=== PATIENT | female | born 1935 | race Caucasian/White ===

== ENCOUNTER 2018-10-13 06:55 | Inpatient (IN) | payer MEDICARE, BC, MEDICAID ==
[~2018-10-13] VITALS: Ht 162.6 cm; Wt 51.7 kg
[2018-10-13] MEDS ORDERED: ATEN25TA PO (07:06)
[2018-10-13] MEDS ORDERED: LEVO25TA9 PO (07:06)
[2018-10-13] MEDS ORDERED: ONDANSETRON 4 MG/2 ML VIAL ONE ×2 (07:09→09:37)
[2018-10-13] MEDS ORDERED: HYDROMORPHONE 1 MG/1 ML DISP.SYRIN ONE ×2 (07:09→09:37)
[2018-10-13] MEDS ORDERED: ONDANSETRON 4 MG/2 ML VIAL IM ONE (07:15)
[2018-10-13] MEDS ORDERED: HYDROMORPHONE 1 MG/1 ML DISP.SYRIN IM ONE (07:15)
--- NOTE | 2018-10-13 08:52 | NUR ---
pt still has pain 02/23. but refusing pain med at this time. aware.
[2018-10-13] MEDS ORDERED: IV NORMAL SALINE 1000 ML BAG IV ONE (09:30)
[2018-10-13] MEDS ORDERED: ONDANSETRON IV *ER 4 MG/2 ML VIAL IV ONE (09:30)
[2018-10-13] MEDS ORDERED: HYDROMORPHONE 1 MG/1 ML DISP.SYRIN IV ONE (09:30)
[2018-10-13 09:50] LABS: BASOPHILS % (AUTO) 0.7 % (0.0-2.0); EOSINOPHILS # (AUTO) 0.1 K/uL (0.0-0.7); EOSINOPHILS % (AUTO) 1.7 % (0.0-7.0); HEMATOCRIT 38.1 % (31.2-41.9); HEMOGLOBIN 12.7 g/dL (10.9-14.3); LYMPHOCYTES # (AUTO) 1.4 K/uL (20.0-40.0); LYMPHOCYTES % (AUTO) 24.3 % (20.5-51.5); MEAN CORPUSCULAR HEMOGLOBIN 31.1 uug (24.7-32.8); MEAN CORPUSCULAR HGB CONC 33 g/dL (32.3-35.6); MEAN CORPUSCULAR VOLUME 93.2 fL (75.5-95.3); MONOCYTES # (AUTO) 0.5 K/uL (2.0-10.0); MONOCYTES % (AUTO) 8.3 % (0.0-11.0); NEUTROPHILS # (AUTO) 3.7 K/uL (1.8-8.9); PLATELET COUNT (AUTO) 141 K/uL (179-408); RED BLOOD CELL COUNT(AUTO) 4.09 MIL/uL (3.63-4.92); WHITE BLOOD COUNT (AUTO) 5.6 K/uL (3.8-11.8)
[2018-10-13 09:51] LABS: *BILIRUBIN,URIN NEGATIVE (NEGATIVE); *BLOOD, URINE Trace-lysed (NEGATIVE); *CLARITY,URINE CLEAR (CLEAR); *COLOR,URINE YELLOW (YELLOW); *KETONES,URINE NEGATIVE (NEGATIVE); *UROBILINOGEN,URINE 0.2 E.U./dl (NORMAL); LEUKOCYTE ESTERASE ,URINE NEGATIVE (NEGATIVE); NITRITE, URINE NEGATIVE (NEGATIVE); PH,URINE 6.5 (5.0-8.0); UGLUCOSE NEGATIVE (NEGATIVE)
[2018-10-13 09:57] LABS: CARBON DIOXIDE 32 mmol/L (21-32); CHLORIDE 101 mmol/L (98-107); GLUCOSE 120 mg/dL (74-106); POTASSIUM 4.8 mmol/L (3.5-5.1); UREA NITROGEN, BLOOD 26 mg/dL (7-18)
[2018-10-13 09:57] LABS: BACTERIA,URINE NONE SEEN /HPF (NONE SEEN); SQUAMOUS EPITHELIAL CELL,UR FEW /HPF (NONE SEEN); WBC,URINE 0-3 /HPF (0-3)
[2018-10-13 10:04] LABS: ALANINE AMINOTRANSFERASE 18 U/L (14-59); ALKALINE PHOSPHATASE 93 U/L (50-136); ASPARTATE AMINOTRANSFERASE 19 U/L (15-37); BILIRUBIN,DIRECT 0.2 mg/dL (0.0-0.2); BILIRUBIN,TOTAL 0.6 mg/dL (0.2-1.0); LIPASE 119 U/L (73-393)
--- NOTE | 2018-10-13 10:13 | NUR ---
pt more comfortable now, neck pain down to 3/10 when moving, pt denies any nausea.
[2018-10-13 10:30] VITALS: BP 173/84
[2018-10-13] MEDS ORDERED: Z GUARD REMEDY PASTE 57 GM TUBE TOP PRN (10:45)
[2018-10-13] MEDS ORDERED: ONDANSETRON 4 MG/2 ML VIAL IV PRN (10:45)
[2018-10-13] MEDS ORDERED: ZOLPIDEM 5 MG TABLET PO PRN (10:45)
[2018-10-13 12:00] VITALS: BP 169/79
[2018-10-13] MEDS ORDERED: ATENOLOL 50 MG TABLET PO ONE (12:15)
[2018-10-13] MEDS: CELECOXIB 200 MG CAPSULE PO SCH ×2 (12:34→23:03)
[2018-10-13] MEDS: IV NS 1000 ML 1,000 ML IV PRN (13:31)
[2018-10-13 16:00] VITALS: BP 135/64
--- NOTE | 2018-10-13 18:00 | NUR ---
Pt is comfortable in bed without neck brace per patients preference. Discuss pt the need for neck brace to stabilize neck pt is in no acute distress. Pt denies any c/o pain. Call light is within reach.
[2018-10-13 20:09] VITALS: BP 119/68
[2018-10-13] MEDS: OXYCODONE HCL 5 MG TABLET PO PRN (21:07)
[2018-10-13] MEDS: ACETAMINOPHEN 325 MG TABLET PO PRN (22:34)
--- NOTE | 2018-10-13 22:55 | NUR ---
PATIENT BLOOD PRESSURE 171/78 AND HR 46. ALL OTHER VSS. CALLED OUT TO DR. SALCIDO FOR FURTHER ORDERS.
[2018-10-13] MEDS: hydrALAZINE HCL 25 MG TABLET PO PRN (23:04)
--- NOTE | 2018-10-13 23:05 | NUR ---
PATIENT GIVEN HYDRALAZINE 25MG PO PRN FOR BP 171/78. MD AWARE OF HEART RATE OF 46. WILL CONTINUE TO MONITOR AND ASSESS.
--- NOTE | 2018-10-13 23:45 | NUR ---
PATIENT ASLEEP IN BED. RECHECKED PATIENTS BP, 146/69 AND HEART RATE 48. WILL CONTINUE TO MONITOR AND ASSESS.
[2018-10-14] MEDS: IV NS 1000 ML 1,000 ML IV PRN ×2 (03:39→15:56)
[2018-10-14 05:07] VITALS: BP 132/69
--- NOTE | 2018-10-14 05:56 | NUR ---
PATIENT ASLEEP IN BED. NO S/S OF PAIN OR DISCOMFORT. SLEPT WELL. VS WNL. IVF INFUSING WELL. BED ALARM ON. CALL LIGHT IN REACH. ALL NEEDS ATTENDED, WILL CONTINUE TO MONITOR AND ASSESS.
[2018-10-14] MEDS: LEVOTHYROXINE SODIUM 25 MCG TABLET PO SCH (06:10)
[2018-10-14] MEDS: OXYCODONE HCL 5 MG TABLET PO PRN ×2 (06:14→15:52)
--- NOTE | 2018-10-14 06:15 | NUR ---
PATIENT AWAKE IN BED. C/O PAIN IN NECK. PATIENT GIVEN OXYCODONE 10MG PO PRN FOR PAIN. WILL CONTINUE TO MONITOR.
[2018-10-14 06:46] LABS: BASOPHILS % (AUTO) 0.9 % (0.0-2.0); EOSINOPHILS # (AUTO) 0.1 K/uL (0.0-0.7); EOSINOPHILS % (AUTO) 3.8 % (0.0-7.0); HEMATOCRIT 37.8 % (31.2-41.9); HEMOGLOBIN 12.5 g/dL (10.9-14.3); LYMPHOCYTES # (AUTO) 1.8 K/uL (20.0-40.0); MEAN CORPUSCULAR HGB CONC 33 g/dL (32.3-35.6); MEAN CORPUSCULAR VOLUME 93.5 fL (75.5-95.3); MONOCYTES # (AUTO) 0.3 K/uL (2.0-10.0); MONOCYTES % (AUTO) 8.9 % (0.0-11.0); NEUTROPHILS # (AUTO) 1.5 K/uL (1.8-8.9); NEUTROPHILS % (AUTO) 40.4 % (38.5-71.5); PLATELET COUNT (AUTO) 126 K/uL (179-408); RED BLOOD CELL COUNT(AUTO) 4.04 MIL/uL (3.63-4.92); WHITE BLOOD COUNT (AUTO) 3.8 K/uL (3.8-11.8)
[2018-10-14 06:51] LABS: ALANINE AMINOTRANSFERASE 14 U/L (14-59); ALKALINE PHOSPHATASE 74 U/L (50-136); ASPARTATE AMINOTRANSFERASE 20 U/L (15-37); CARBON DIOXIDE 30 mmol/L (21-32); CHLORIDE 108 mmol/L (98-107); CHOLESTEROL 128 mg/dL (<200); CREATININE 0.8 mg/dL (0.6-1.3); GLUCOSE 97 mg/dL (74-106); HDL CHOLESTEROL 64 mg/dL (40-60); MAGNESIUM 1.8 mg/dL (1.8-2.4); PHOSPHOROUS 3.2 mg/dL (2.5-4.9); POTASSIUM 4.4 mmol/L (3.5-5.1); TRIGLYCERIDES 20 MG/DL (30-150); UREA NITROGEN, BLOOD 19 mg/dL (7-18)
[2018-10-14 06:55] LABS: THYROID STIMULATING HORMONE 0.641 mIU/mL (0.358-3.740)
[2018-10-14 08:00] VITALS: BP 161/73
--- NOTE | 2018-10-14 08:00 | NUR ---
AWAKE ALERT COOPERATE WELL NO PAIN OR SOB AT THIS TIME RESTING WELL WITH CALL JASSO IN REACH
[2018-10-14] MEDS: CELECOXIB 200 MG CAPSULE PO SCH ×2 (08:39→20:46)
[2018-10-14] MEDS: ATENOLOL 25 MG TABLET PO SCH (08:40)
--- NOTE | 2018-10-14 10:00 | NUR ---
OOB UP AMBULATE WITH PT DOING WELL FAMILY AT BEDSIDE
[2018-10-14 11:36] VITALS: BP 160/71
[2018-10-14 13:00] VITALS: BP 138/56
[2018-10-14 15:35] VITALS: BP 132/66
--- NOTE | 2018-10-14 16:00 | NUR ---
C/O OF H/A MEDICATION OXY IR PO GIVEN ORDER AND COOL COMPRESS TO FOREHAED FOR COMFORT KEEP ROOM DARK AND QUIET
--- NOTE | 2018-10-14 17:00 | NUR ---
PATIENT STATE PAIN STILL THERE MEDICATION DOES NOT HELP AT THIS TIME ASIM MARSH WAS INFORM AND MESSAGE LEFT
--- NOTE | 2018-10-14 17:30 | NUR ---
STABLE CONDITION NO SOB OR RESPIRATORY DISTRESS SAFETY MEASURE PROVIDED CALL LIGHT IN REACH ON PAIN MANAGEMENT
--- NOTE | 2018-10-14 19:40 | NUR ---
RECEIVED PATIENT AWAKE, NO SOB NO CHEST PAIN, NO COMPLAIN OF PAIN AT THIS TIME. ASSIST WITH TOILETING, CALL LIGHT WTIHIN REACH.
[2018-10-14 20:43] VITALS: BP 160/74
[2018-10-15] MEDS: OXYCODONE HCL 5 MG TABLET PO PRN ×2 (05:39→23:06)
[2018-10-15 06:02] VITALS: BP 189/80
[2018-10-15] MEDS: LEVOTHYROXINE SODIUM 25 MCG TABLET PO SCH (06:18)
--- NOTE | 2018-10-15 07:01 | NUR ---
Patient BP was elevated, complain of neck/head pain, medicated for pain, patient pain medication was helpful less pain at this time. recheck BP 171/84, heart rate 52, medication BP will be given, endorsed to next shift.
[2018-10-15] MEDS: hydrALAZINE HCL 25 MG TABLET PO PRN (07:07)
--- NOTE | 2018-10-15 07:30 | NUR ---
AWAKE ALERT NO SOB OR PAIN CONTINUE IVF ON FALL PRECAUTION BED ALARM ON AND CALL LIGHT IN REACH
[2018-10-15 08:00] VITALS: BP 161/76
[2018-10-15] MEDS: ACETAMINOPHEN 325 MG TABLET PO PRN (08:32)
[2018-10-15] MEDS: CELECOXIB 200 MG CAPSULE PO SCH ×2 (08:32→20:28)
[2018-10-15] MEDS: ATENOLOL 25 MG TABLET PO SCH (10:44)
[2018-10-15] MEDS: IV NS 1000 ML 1,000 ML IV PRN ×2 (11:15→21:34)
[2018-10-15 11:44] VITALS: BP 165/74
--- NOTE | 2018-10-15 13:00 | NUR ---
Saskia VAZQUEZ SEEN PATIENT AND ORDER MRI CSPINE TODAY CHECK LIST AND CONSENT COMPLETE,PATIENT WAS AWARE
[2018-10-15 15:33] VITALS: BP 112/79
--- NOTE | 2018-10-15 17:30 | NUR ---
STABLE CONDITION PAIN UNDER CONTROL NO RESPIRATORY DISTRESS SAFETY MEASURE PROVIDED CALL LIGHT IN REACH AND BED ALARM ON . STILL WAITING FOR MRI OF C SPINE
[2018-10-15 19:21] VITALS: BP 159/86
--- NOTE | 2018-10-15 19:26 | NUR ---
RECEIVED PT AWAKE, ALERT AND ORIENTEDX4. PT SHOWS NO SIGNS OF ACUTE DISTRESS. PT IV INTACT AND INFUSING WELL. CALL LIGHT WITHIN REACH. SAFETY AND COMFORT PROVIDED. WILL CONTINUE TO MONITOR.
[2018-10-15] MEDS: DOCUSATE SODIUM 100 MG CAPSULE PO SCH (20:28)
[2018-10-16] MEDS: ACETAMINOPHEN 325 MG TABLET PO PRN (02:02)
[2018-10-16 04:30] VITALS: BP 138/94
[2018-10-16] MEDS: LEVOTHYROXINE SODIUM 25 MCG TABLET PO SCH (06:25)
--- NOTE | 2018-10-16 06:39 | NUR ---
AT 2306H PT WAS GIVEN OXYIR FOR 10/10 PAIN ON HER LOWER BACK. PT TOLERATED IT WELL. PT SLEPT INTERMITTENTLY.. PT SHOWS NO SIGNS OF ACUTE DISTRESS. PRESCRIBED MEDICATION GIVEN AND PT TOLERATED IT WELL. CALL LIGHT WITHIN REACH. SAFETY AND COMFORT PROVIDED. ALL NEEDS ARE MET. WILL ENDORSE ACCORDINGLY TO INCOMING NURSE FOR CONTINUITY OF CARE.
--- NOTE | 2018-10-16 06:55 | NUR ---
TEXTED DR. MIDDLETON FOR MRI APPROVAL.
--- NOTE | 2018-10-16 07:00 | NUR ---
PATIENT A/O 4, . PT SHOWS NO SIGNS OF ACUTE DISTRESS. COMPLAINED OF PAIN AND WILL FOLLOW PER ORDERS CALL LIGHT WITHIN REACH. SAFETY AND COMFORT PROVIDED. ALL NEEDS ARE MET.
[2018-10-16] MEDS: CELECOXIB 200 MG CAPSULE PO SCH (08:51)
[2018-10-16] MEDS: DOCUSATE SODIUM 100 MG CAPSULE PO SCH (08:51)
[2018-10-16] MEDS: ATENOLOL 25 MG TABLET PO SCH (08:59)
[2018-10-16] MEDS: OXYCODONE HCL 5 MG TABLET PO PRN (09:01)
[2018-10-16 11:20] VITALS: BP 180/72
[2018-10-16 12:30] VITALS: BP 153/76
--- NOTE | 2018-10-16 16:00 | NUR ---
PATIENT A/O 4, NO DISTRESS, WAS GIVEN OXYIR X1 FOR LOWER BACK. PT TOLERATED IT WELL. NO SIGNS OF ACUTE DISTRESS. PRESCRIBED MEDICATION GIVEN AND PT EVAL PASSED. PATIENT DISCHARGED HOME , INSTRACTIONS GIVEN AND TEACHING PROVIDED. ANGELINA SYED TOOK PATIENT DOWNSTAIRS BY WHEELCHAIR, PATIENT IS GOING HOME WITH FRIEND WHO IS DRIVING
== END 2018-10-16 19:31 | disposition home health service (06) | DRG 552 ==
LOC: ER 06:57 → MED 10:12
PROVIDERS: ADMIT Nurse Practitioner Acute Care; ATTEND Nurse Practitioner Acute Care
DX: M48.02 Spinal stenosis, cervical region (principal); M47.812 Spondylosis without myelopathy or radiculopathy, cervical region; Z96.649 Presence of unspecified artificial hip joint; Z98.1 Arthrodesis status; E03.9 Hypothyroidism, unspecified; G89.4 Chronic pain syndrome; I27.20 Pulmonary hypertension, unspecified; I11.9 Hypertensive heart disease without heart failure; I08.3 Combined rheumatic disorders of mitral, aortic and tricuspid valves; D69.6 Thrombocytopenia, unspecified; Z79.891 Long term (current) use of opiate analgesic; I70.0 Atherosclerosis of aorta; M46.92 Unspecified inflammatory spondylopathy, cervical region
CPT/HCPCS: 36415; 70030-TC; 71045; 72125; 83690; 83735; 84100; 84443; 85025; 85730; 87086; 87400; 93005; 93307; 97116; 97530; A4663; G0378; J1170; J2405; J7030